=== PATIENT | female | born 1970 | race Caucasian/White ===

== ENCOUNTER 2022-11-11 16:31 | Emergency (ER) | payer OTHER ==
[~2022-11-11] VITALS: Ht 154.9 cm; Wt 81.8 kg
[2022-11-11] MEDS ORDERED: ASPI-1450 PO (16:33)
[2022-11-11 16:35] VITALS: TEMP 98.1
[2022-11-11] MEDS ORDERED: HYDROCODONE/ACETAMINOPHEN 5-325 MG TABLET PO ONE (17:15)
[2022-11-11] MEDS ORDERED: IBUPROFEN 600 MG TABLET PO ONE (17:15)
[2022-11-11] MEDS ORDERED: CefTRIAXone SODIUM 1 GM/VIAL IM ONE (17:45)
[2022-11-11] MEDS ORDERED: LIDOCAINE/PF 1% 2 ML VIAL IM ONE (17:45)
[2022-11-11] MEDS ORDERED: IBUP-1554 PO (19:15)
[2022-11-11] MEDS ORDERED: CEPH-558 PO (19:15)
[2022-11-11] MEDS ORDERED: HYDR-4072 PO (19:15)
[2022-11-11] MEDS ORDERED: DOXY-354 PO (19:15)
[2022-11-11 19:24] VITALS: BP 126/65; PULSE 73; RESP 18
== END 2022-11-11 19:26 | disposition home or self-care (01) ==
LOC: EMS 16:31
DX: L02.31 Cutaneous abscess of buttock (principal); F17.210 Nicotine dependence, cigarettes, uncomplicated
CPT/HCPCS: 99283; 10060; 96372; J0696; J3490

== ENCOUNTER 2022-11-14 10:23 | Emergency (ER) | payer OTHER ==
[~2022-11-14] VITALS: Ht 160 cm; Wt 68.2 kg
[~2022-11-14 10:23] MED LIST: ASPI-1450 PO; CEPH-558 PO; DOXY-354 PO; HYDR-4072 PO; IBUP-1554 PO
[2022-11-14 10:26] VITALS: TEMP 98.2
[2022-11-14 10:53] VITALS: BP 120/75; PULSE 82; RESP 18
== END 2022-11-14 11:15 | disposition left against medical advice (07) ==
LOC: EMS 10:23
DX: S70.262D Insect bite (nonvenomous), left hip, subsequent encounter (principal); Z53.21 Procedure and treatment not carried out due to patient leaving prior to being seen by health care provider; W57.XXXD Bitten or stung by nonvenomous insect and other nonvenomous arthropods, subsequent encounter
CPT/HCPCS: 99281; Z7502

== ENCOUNTER 2022-12-18 18:29 | Emergency (ER) | payer OTHER ==
[~2022-12-18] VITALS: Ht 154.9 cm; Wt 70.9 kg
[2022-12-18 18:33] VITALS: BP 125/71; PULSE 98; RESP 18; TEMP 98.4
[2022-12-18] MEDS ORDERED: CEPH-558 PO (20:48)
[2022-12-18] MEDS ORDERED: VALA100026 PO (20:49)
[2022-12-18] MEDS ORDERED: DOXY-354 PO (20:50)
== END 2022-12-18 21:00 | disposition home or self-care (01) ==
LOC: EMS 18:30
DX: B02.9 Zoster without complications (principal); F17.210 Nicotine dependence, cigarettes, uncomplicated
CPT/HCPCS: 99283

== ENCOUNTER 2023-09-04 02:39 | Emergency (ER) | payer OTHER ==
[~2023-09-04] VITALS: Ht 154.9 cm; Wt 72.7 kg
[~2023-09-04 02:39] MED LIST changes: +VALA100026 PO
[2023-09-04 03:10] VITALS: BP 124/81; PULSE 83; RESP 18; TEMP 97.8
== END 2023-09-04 05:01 | disposition left against medical advice (07) ==
LOC: EMS 03:09
DX: H02.846 Edema of left eye, unspecified eyelid (principal); Z53.21 Procedure and treatment not carried out due to patient leaving prior to being seen by health care provider